=== PATIENT | male | born 1980 | race Two or more races ===

== ENCOUNTER 2024-06-12 05:15 | Emergency (ER) | payer OTHER, SELFPAY ==
[2024-06-12] VITALS (9 sets, daily range): BP systolic 117–152; BP diastolic 67–90; PULSE 102–113; RESP 16–20; TEMP 36.4–37.5; O2SAT 93–100; BMI 44.3
--- NOTE | 2024-06-12 05:37 | ED_ITS ---
HPI - SOB/Dyspnea General Chief Complaint: Upper Respiratory Symptoms Stated Complaint: SOB hx of Asthma Time Seen by Provider: 06/12/24 05:37 Source: patient Mode of arrival: EMS Limitations: no limitations History of Present Illness ED Provider: HPI Narrative: Patient with history of schizoaffective disorder does discharge from [facility] for RSV bronchitis patient been having symptoms for last 3 days was seen at [facility] discharge comes here as still feeling short of breath does not feel safe getting agitated in between coughing frequently Related Data Allergies Allergy/AdvReac Type Severity Reaction Status Date / Time No Known Allergies Allergy Verified 06/12/24 05:28 Review of Systems 2 Review of Systems: Yes all other systems are reviewed and are negative [facility] Past Medical History Medical History Schizoaffective disorder Social History Social History Advance Directives: No Advance Directives Information Provided: Yes Physical Exam 2 Vital Signs: Vital Signs: Last Vital Signs Temp 97.6 F 06/12/24 05:26 Pulse 103 H 06/12/24 06:30 Resp 18 06/12/24 06:30 BP 117/76 06/12/24 06:30 Pulse Ox 94 06/12/24 06:30 O2 Del Method Room Air 06/12/24 06:30 BMI result Body Mass Index 44.3 Appearance: Alert. Oriented X3. No acute distress. Coughing and wheezing Eyes: PERRLA, No Nystagmus ENT: Pharynx normal. Oral Mucosa moist Neck: Normal inspection. Neck supple. CVS: Normal heart rate and rhythm. Pulses normal. Respiratory: No respiratory distress. Equal air entry bilateral, bilateral wheezing with frequent cough Abdomen: Soft and nontender. Bowel sounds are present, no mass palpable, no CVA tenderness Skin: Skin warm and dry. Normal skin color. Normal skin turgor. Extremities: No lower extremity edema. No calf tenderness psych: Labile mood frequently coughing Neuro: Oriented X 3. No motor deficit. No sensory deficit.No cerebellar signs , cranial nerves II-XII intact Medications Administered Discontinued Medications Generic Name Dose Route Start Last Admin Trade Name Freq PRN Reason Stop Dose Admin Diphenhydramine HCl 50 mg 06/12/24 06:16 06/12/24 06:15 Diphenhydramine Hcl 50 Mg/Ml Vial IM 06/12/24 06:17 50 mg ONCE ONE Administration Haloperidol Lactate 5 mg 06/12/24 06:16 06/12/24 06:15 Haloperidol Lactate 5 Mg/Ml Vial IM 06/12/24 06:17 5 mg STAT STA Administration Lorazepam 2 mg 06/12/24 06:16 06/12/24 06:15 Lorazepam 2 Mg/Ml Vial IM 06/12/24 06:17 2 mg STAT STA Administration Medical Decision Making Medical Decision Making MDM Narrative: Patient has become very agitated during stay in the ER started hitting himself felt suicidal has a restrained him and medicated will get care team with no for evaluation Lab Data [facility] Lab Attestation statement: I reviewed the patient's lab results. 06/12/24 06:48 06/12/24 06:48 Labs: Lab Results 06/12/24 Range/Units 06:48 WBC 7.1 (4.8-10.8) X10*3/uL RBC 4.01 L (4.60-5.80) X10*6/uL Hgb 10.8 L (14.0-18.0) g/dl Hct 32.6 L (42.0-52.0) % MCV 81.3 (80.0-98.0) fL MCH 26.9 L (27.0-33.0) pg MCHC 33.1 (31.0-36.0) g/dl RDW 14.1 (11.0-16.0) % Plt Count 212 (160-400) X10*3/uL MPV 9.7 (9.4-12.4) fL Immature Gran % (Auto) 0.7 H (0.0-0.4) % Neut % (Auto) 47.6 (45-73) % Lymph % (Auto) 29.7 (20-40) % [place] % (Auto) 16.0 H (2-11) % Eos % (Auto) 5.4 H (0-4) % Baso % (Auto) 0.6 (0-2) % Lymph # (Auto) 2.1 (1.2-4.9) X10*3/uL [place] # (Auto) 1.1 (0.1-1.2) X10*3/uL Eos # (Auto) 0.4 (0.0-0.4) X10*3/uL Baso # (Auto) 0.0 (0.0-0.2) X10*3/uL Abs Immat Gran (auto) 0.05 H (0.00-0.03) X10*3/uL Absolute Neuts (auto) 3.4 (2.0-8.3) x10*3/uL Absolute Nucleated RBC 0.000 (0.0-0.012) X10*3/uL Nucleated RBC % (auto) 0.0 (0.0-0.2) /100WBC Discharge Plan Discharge Clinical Impression: Acute bronchiolitis due to respiratory syncytial virus, Schizoaffective disorder, Depression with suicidal ideation Patient Disposition: Still a Patient Print Language: Hungarian
--- NOTE | 2024-06-12 06:14 | PC.NURSE ---
registration and nuclear plant operator approached this RN at this time stating i am going to kill myself . this rn at bedside with nuclear plant operator. when asking why pt is hitting self and hitting his head against the bed he states i am going to kill myself i have no where to go my mom does not want me im living in a room pt explained the car changer process. provider at bedside. pt charged at provider at desk, hitting self and then threw self on the floor.
[2024-06-12] MEDS: diphenhydrAMINE HCL 50 MG/ML VIAL IM (06:15)
[2024-06-12] MEDS: LORazepam 2 MG/ML VIAL IM (06:15)
[2024-06-12] MEDS: Haloperidol Lactate 5 MG/ML VIAL IM (06:15)
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
--- OUTSIDE RECORDS SUMMARY | 2024-06-12 06:31 | XMS_ITS | Clinical Summary ---
Author Organization Unknown Care Team Providers Care Product Analyst Name Role Phone MELVIN HUMID SYSTEM OPERATOR, SOFI Unavailable Unavailable WISAM AUGUSTINE, ZEINAB Unavailable Unavailable Payers Payer Name Policy Type Policy Number Effective Date Expira tion Date [facility] [id number] MEDICAID [facility] [id number] MEDICARE - [facility] - [facility] [id number] Problems Condition Name Condition Details Condition Category Status Onset Date Resolution Date Last Treatment Date Treating Clinician Comments SCHIZOPHRENI A, UNSPECIFIED Active 08-29 00:00: 00 TYPE 2 DIABETES MELLITUS WITHOUT COMPLICATION S Active 09-09 00:00: 00 Allergies, Adverse Reactions, Alerts Allergy Name Allergy Type Status Severity Reaction(s) Onset Date Inactive Date Treating Clinician Comments NKA Propensity to adverse reactions Active 2023-08 10:24:4 8 Medications Ordered Medication Name Filled Medication Name Start Date Stop Date Current Medication? Ordering Clinician Indication Dosage Frequency Signature (SIG) Comments Components atorvastati n 40 mg tablet 09-02 00:00: 00 Yes [id number] 1 tablet BEDTIME 1 tablet BEDTIME (route: oral) Med Classific ation: Cardiovas cular Therapy Agents clozapine 100 mg tablet 09-02 00:00: 00 Yes [id number] 3 tablet BEDTIME 3 tablet BEDTIME (route: oral) Med Classific ation: Central Nervous System Agents divalproex 500 mg tablet,adriana yed release 09-02 00:00: 00 Yes [id number] 3 tablet BEDTIME 3 tablet BEDTIME (route: oral) Med Classific ation: Central Nervous System Agents escitalopra m 20 mg tablet 09-02 00:00: 00 Yes [id number] 1 tablet DAILY 1 tablet DAILY (route: oral) Med Classific ation: Central Nervous System Agents famotidine 20 mg tablet 09-02 00:00: 00 Yes [id number] 1 tablet DAILY 1 tablet DAILY (route: oral) Med Classific ation: Gastroint estinal Therapy Agents hydroxyzine pamoate 50 mg capsule 09-02 00:00: 00 Yes [id number] 1 capsule NEEDED 1 capsule NEEDED (route: oral) Med Classific ation: Central Nervous System Agents lisinopril 5 mg tablet 09-02 00:00: 00 Yes [id number] 0.5 tablet DAILY 0.5 tablet DAILY (route: oral) Med Classific ation: Cardiovas cular Therapy Agents loratadine 10 mg tablet 09-02 00:00: 00 Yes [id number] 1 tablet DAILY 1 tablet DAILY (route: oral) Med Classific ation: Respirato ry Therapy Agents melatonin 3 mg tablet 09-02 00:00: 00 04-25 23:59 :00 No [id number] 3 tablet BEDTIME 3 tablet BEDTIME (route: oral) Med Classific ation: Central Nervous System Agents metformin 500 mg tablet 09-02 00:00: 00 Yes [id number] 1 tablet DAILY 1 tablet DAILY (route: oral) Med Classific ation: Endocrine metoprolol succinate ER 25 mg tablet,exte nded release 24 hr 09-02 00:00: 00 Yes [id number] 3 tablet DAILY 3 tablet DAILY (route: oral) Med Classific ation: Cardiovas cular Therapy Agents trazodone 50 mg tablet 09-02 00:00: 00 Yes [id number] 1 tablet BEDTIME 1 tablet BEDTIME (route: oral) Med Classific ation: Central Nervous System Agents melatonin 5 mg tablet 2023-06 00:00: 00 Yes [id number] 1 tablet BEDTIME 1 tablet BEDTIME (route: oral) Med Classific ation: Central Nervous System Agents Vital Signs Vital Name Observation Time Observation Value Commen ts Temperature 2024-06-07 08:43:00.000 97.9 [degF] Temperature 2024-06-04 08:44:00.000 97.6 [degF] Temperature 2024-05-31 08:44:00.000 97.9 [degF] Temperature 2024-05-28 08:41:00.000 97.9 [degF] Temperature 2024-05-25 08:52:00.000 97.9 [degF] Temperature 2024-05-24 08:46:00.000 97.9 [degF] Temperature 2024-05-22 08:51:00.000 97.6 [degF] Temperature 2024-05-21 08:43:00.000 97.9 [degF] Temperature 2024-05-17 08:53:00.000 97.9 [degF] Temperature 2024-05-16 08:46:00.000 97.9 [degF] Temperature 2024-05-14 08:43:00.000 97.6 [degF] Temperature 2024-05-07 08:33:00.000 97.6 [degF] Temperature 2024-05-02 08:48:00.000 98.2 [degF] Temperature 2024-04-30 08:35:00.000 97.8 [degF] Pulse 2024-06-07 08:43:00.000 79 /min Pulse 2024-06-04 08:44:00.000 75 /min Pulse 2024-05-31 08:44:00.000 82 /min Pulse 2024-05-28 08:41:00.000 78 /min Pulse 2024-05-25 08:52:00.000 76 /min Pulse 2024-05-24 08:46:00.000 75 /min Pulse 2024-05-22 08:51:00.000 82 /min Pulse 2024-05-21 08:43:00.000 77 /min Pulse 2024-05-17 08:53:00.000 76 /min Pulse 2024-05-16 08:46:00.000 77 /min Pulse 2024-05-14 08:43:00.000 76 /min Pulse 2024-05-07 08:33:00.000 76 /min Pulse 2024-05-02 08:48:00.000 76 /min Pulse 2024-04-30 08:35:00.000 78 /min O2 Saturation (%) 2024-06-07 08:43:00.000 97 % O2 Saturation (%) 2024-06-04 08:45:00.000 98 % O2 Saturation (%) 2024-05-31 08:50:00.000 98 % O2 Saturation (%) 2024-05-28 08:43:00.000 98 % O2 Saturation (%) 2024-05-25 08:52:00.000 98 % O2 Saturation (%) 2024-05-24 08:47:00.000 97 % O2 Saturation (%) 2024-05-21 08:44:00.000 97 % O2 Saturation (%) 2024-05-17 08:53:00.000 98 % O2 Saturation (%) 2024-05-07 08:45:00.000 98 % O2 Saturation (%) 2024-05-02 08:49:00.000 97 % O2 Saturation (%) 2024-04-30 08:35:00.000 98 % Respirations 2024-06-07 08:43:00.000 18 /min Respirations 2024-06-04 08:44:00.000 18 /min Respirations 2024-05-31 08:44:00.000 18 /min Respirations 2024-05-28 08:41:00.000 20 /min Respirations 2024-05-25 08:52:00.000 20 /min Respirations 2024-05-24 08:46:00.000 20 /min Respirations 2024-05-22 08:51:00.000 20 /min Respirations 2024-05-21 08:43:00.000 20 /min Respirations 2024-05-17 08:53:00.000 18 /min Respirations 2024-05-16 08:46:00.000 20 /min Respirations 2024-05-14 08:43:00.000 20 /min Respirations 2024-05-07 08:33:00.000 20 /min Respirations 2024-05-02 08:48:00.000 18 /min Respirations 2024-04-30 08:35:00.000 20 /min Systolic Blood Pressure 2024-06-07 08:43:00.000 128 mm [Hg] Systolic Blood Pressure 2024-06-04 08:44:00.000 134 mm [Hg] Systolic Blood Pressure 2024-05-31 08:44:00.000 136 mm [Hg] Systolic Blood Pressure 2024-05-28 08:41:00.000 135 mm [Hg] Systolic Blood Pressure 2024-05-25 08:52:00.000 134 mm [Hg] Systolic Blood Pressure 2024-05-24 08:46:00.000 126 mm [Hg] Systolic Blood Pressure 2024-05-22 08:51:00.000 128 mm [Hg] Systolic Blood Pressure 2024-05-21 08:43:00.000 128 mm [Hg] Systolic Blood Pressure 2024-05-17 08:53:00.000 128 mm [Hg] Systolic Blood Pressure 2024-05-16 08:46:00.000 128 mm [Hg] Systolic Blood Pressure 2024-05-14 08:43:00.000 128 mm [Hg] Systolic Blood Pressure 2024-05-07 08:33:00.000 141 mm [Hg] Systolic Blood Pressure 2024-05-02 08:48:00.000 134 mm [Hg] Systolic Blood Pressure 2024-04-30 08:35:00.000 134 mm [Hg] Diastolic Blood Pressure 2024-06-07 08:43:00.000 77 mm [Hg] Diastolic Blood Pressure 2024-06-04 08:44:00.000 84 mm [Hg] Diastolic Blood Pressure 2024-05-31 08:44:00.000 86 mm [Hg] Diastolic Blood Pressure 2024-05-28 08:41:00.000 84 mm [Hg] Diastolic Blood Pressure 2024-05-25 08:52:00.000 78 mm [Hg] Diastolic Blood Pressure 2024-05-24 08:46:00.000 69 mm [Hg] Diastolic Blood Pressure 2024-05-22 08:51:00.000 79 mm [Hg] Diastolic Blood Pressure 2024-05-21 08:43:00.000 74 mm [Hg] Diastolic Blood Pressure 2024-05-17 08:53:00.000 77 mm [Hg] Diastolic Blood Pressure 2024-05-16 08:46:00.000 76 mm [Hg] Diastolic Blood Pressure 2024-05-14 08:43:00.000 76 mm [Hg] Diastolic Blood Pressure 2024-05-07 08:33:00.000 84 mm [Hg] Diastolic Blood Pressure 2024-05-02 08:48:00.000 78 mm [Hg] Diastolic Blood Pressure 2024-04-30 08:35:00.000 81 mm [Hg] Plan of Treatment Planned Activity Planned Date Details Comments Future Scheduled Test SKILLED NU RSE TO EVALUATE PATIENT, IDENTIFY PRIMARY AND CO-MORBID CONDITIONS CODED PER CODING GUIDELINES, AND DEVELOP PATIENT SPECIFIC PLAN OF CARE THAT INCLUDES PATIENT GOAL FOR HOME HEALTH. [code = SKILLED NURSE TO EVALUATE PATIENT, IDENTIFY PRIMARY AND CO-MORBID CONDITIONS CODED PER CODING GUIDELINES, AND DEVELOP PATIENT SPECIFIC PLAN OF CARE THAT INCLUDES PATIENT GOAL FOR HOME HEALTH.] Future Scheduled Test SKILLED NU RSE TO O/A OF PATIENTS MENTAL/BEHAVIORAL STATUS, ASSESS VITAL SIGNS ALLOW 2 PRNS FOR MEDICATION MANAGEMENT. [code = SKILLED NURSE TO O/A OF PATIENTS MENTAL/BEHAVIORAL STATUS, ASSESS VITAL SIGNS ALLOW 2 PRNS FOR MEDICATION MANAGEMENT.] Future Scheduled Test SKILLED NU RSE FOR O/A OF PATIENT'S RISK FOR VIOLENCE (TOWARD SELF OR OTHERS) AND TO PROVIDE INTERVENTION TECHNIQUES TO PROMOTE SAFETY TO PATIENT AND OTHERS [code = SKILLED NURSE FOR O/A OF PATIENT'S RISK FOR VIOLENCE (TOWARD SELF OR OTHERS) AND TO PROVIDE INTERVENTION TECHNIQUES TO PROMOTE SAFETY TO PATIENT AND OTHERS] Future Scheduled Test SKILLED NU RSE FOR O/A OF ALTERED THOUGHT PROCESS AND/OR DISRUPTION IN COGNITIVE OPERATIONS AND ACTIVITIES [code = SKILLED NURSE FOR O/A OF ALTERED THOUGHT PROCESS AND/OR DISRUPTION IN COGNITIVE OPERATIONS AND ACTIVITIES ] Future Scheduled Test SKILLED NU RSE FOR O/A OF GENERAL HEALTH STATUS OF PAIN, CARDIAC, RESPIRATORY, GASTROINTESTINAL, GENITOURINARY, SKIN, NEUROLOGIC, ENDOCRINE SYSTEMS TO IDENTIFY CHANGES ASSOCIATED WITH EXACERBATION FOR EARLY INTERVENTION OF COMPLICATIONS WEEKLY. [code = SKILLED NURSE FOR O/A OF GENERAL HEALTH STATUS OF PAIN, CARDIAC, RESPIRATORY, GASTROINTESTINAL, GENITOURINARY, SKIN, NEUROLOGIC, ENDOCRINE SYSTEMS TO IDENTIFY CHANGES ASSOCIATED WITH EXACERBATION FOR EARLY INTERVENTION OF COMPLICATIONS WEEKLY.] Future Scheduled Test SKILLED NU RSE FOR O/A AND SKILLED TEACHING RELATED TO MANAGEMENT OF DEPRESSIVE SYMPTOMS AND/OR DEPRESSION. SN TO REPORT SIGNIFICANT CHANGE IN DEPRESSIVE SYMPTOMS TO CLINICAL PROVIDER FOR EARLY INTERVENTION. [code = SKILLED NURSE FOR O/A AND SKILLED TEACHING RELATED TO MANAGEMENT OF DEPRESSIVE SYMPTOMS AND/OR DEPRESSION. SN TO REPORT SIGNIFICANT CHANGE IN DEPRESSIVE SYMPTOMS TO CLINICAL PROVIDER FOR EARLY INTERVENTION.] Future Scheduled Test SKILLED NU RSE FOR O/A AND TEACHING OF DIABETIC MANAGEMENT INCLUDING BLOOD SUGAR MONITORING/USE OF GLUCOMETER, DIABETIC DIET, LOWER EXTREMITY SKIN INSPECTION, PROPER SKIN/FOOT CARE, AND SIGNS AND SYMPTOMS HYPO/HYPERGLYCEMIA TO REPORT. [code = SKILLED NURSE FOR O/A AND TEACHING OF DIABETIC MANAGEMENT INCLUDING BLOOD SUGAR MONITORING/USE OF GLUCOMETER, DIABETIC DIET, LOWER EXTREMITY SKIN INSPECTION, PROPER SKIN/FOOT CARE, AND SIGNS AND SYMPTOMS HYPO/HYPERGLYCEMIA TO REPORT.] Future Scheduled Test SKILLED NU RSE TO PERFORM AND RECORD BLOOD SUGAR READING EACH VISIT, AND PRN FOR SIGNS AND SYMPTOMS OF HYPO/HYPERGLYCEMIA. [code = SKILLED NURSE TO PERFORM AND RECORD BLOOD SUGAR READING EACH VISIT, AND PRN FOR SIGNS AND SYMPTOMS OF HYPO/HYPERGLYCEMIA.] Future Scheduled Test SKILLED NU RSE FOR O/A, TEACHING, AND MANAGEMENT [code = SKILLED NURSE FOR O/A, TEACHING, AND MANAGEMENT ] Future Scheduled Test SKILLED NU RSE TO REVIEW PATIENT MEDICATIONS. INSTRUCT PATIENT/CAREGIVER ON MONITORING OF EFFECTIVENESS, ADVERSE DRUG REACTIONS, SIDE EFFECTS OF ALL MEDICATIONS (PRESCRIPTION/-OTC), AND HOW AND WHEN TO REPORT PROBLEMS. [code = SKILLED NURSE TO REVIEW PATIENT MEDICATIONS. INSTRUCT PATIENT/CAREGIVER ON MONITORING OF EFFECTIVENESS, ADVERSE DRUG REACTIONS, SIDE EFFECTS OF ALL MEDICATIONS (PRESCRIPTION/-OTC), AND HOW AND WHEN TO REPORT PROBLEMS.] Future Scheduled Test SKILLED NU RSE FOR O/A OF CLIENT'S CURRENT DEGREE OF HOPELESSNESS AND PROVIDE THERAPEUTIC INTERVENTIONS AND TEACHING DESIGNED TO ENHANCE THE CLIENT'S WELL BEING. [code = SKILLED NURSE FOR O/A OF CLIENT'S CURRENT DEGREE OF HOPELESSNESS AND PROVIDE THERAPEUTIC INTERVENTIONS AND TEACHING DESIGNED TO ENHANCE THE CLIENT'S WELL BEING.] Future Scheduled Test SKILLED NU RSE TO ASSESS PATIENTS PSYCHOSOCIAL STATUS TO IDENTIFY POTENTIAL ISSUES THAT MAY COMPLICATE THE PROVISION OF THE PLAN OF CARE INCLUDING THE PATIENTS ABILITY TO ACCESS COMMUNITY RESOURCES AND PSYCHOSOCIAL SUPPORT SERVICES. [code = SKILLED NURSE TO ASSESS PATIENTS PSYCHOSOCIAL STATUS TO IDENTIFY POTENTIAL ISSUES THAT MAY COMPLICATE THE PROVISION OF THE PLAN OF CARE INCLUDING THE PATIENTS ABILITY TO ACCESS COMMUNITY RESOURCES AND PSYCHOSOCIAL SUPPORT SERVICES.] Future Scheduled Test SKILLED NU RSE WILL MAINTAIN SITUATIONAL AWARENESS FOR SAFETY AND WILL NOTIFY CLINICAL PATTERN ATTENDANT AND PHYSICIAN/PROVIDER WITH ANY CHANGE IN CONDITION. [code = SKILLED NURSE WILL MAINTAIN SITUATIONAL AWARENESS FOR SAFETY AND WILL NOTIFY CLINICAL PATTERN ATTENDANT AND PHYSICIAN/PROVIDER WITH ANY CHANGE IN CONDITION.] Goal 2023-12-28 Patient Goal - TAKE ALL MEDI CATIONS Goal 2023-10-28 Patient Goal - TAKE ALL MEDI CATIONS Goal 2024-02-27 Patient Goal - TAKE ALL MEDI CATIONS Goal 2024-04-25 Patient Goal - T [place] ALL MEDICATIONS DIRECTED PT WILL HAVE NO HOSPITALIZATION Goal Patient Goal - T [place] ALL MEDICATIONS DIRECTED PT WILL HAVE NO HOSPITALIZATION Goal Provider Goal - A PLAN OF CARE WILL BE ESTABLISHED THAT MEETS PATIENT'S LONGTERM NEEDS AND INCLUDES PATIENT GOAL FOR HOME HEALTH. Goal Provider Goal - ALTERED MENTAL/BEHAVIORAL STATUS WILL BE IDENTIFIED PROMPTLY AND INTERVENTION INITIATED QUICKLY TO MINIMIZE ASSOCIATED RISKS THROUGHOUT CERTIFICATION PERIOD. Goal Provider Goal - PATIENT WILL REMAIN SAFE IN COMMUNITY WITHOUT EVIDENCE OF INJURY/HARM TO SELF OR OTHERS THROUGHOUT CERTIFICATION PERIOD. Goal Provider Goal - PATIENT WILL BE ABLE TO PERFORM DAILY FUNCTIONS AND HAVE OPTIMAL IMPROVEMENT IN THOUGHT PROCESS THROUGHOUT CERTIFICATION PERIOD. Goal Provider Goal - CHANGE IN GENERAL HEALTH STATUS WILL BE IDENTIFIED AND REPORTED TO PHYSICIAN FOR PROMPT INTERVENTION TO MINIMIZE ASSOCIATED RISKS THROUGHOUT CERTIFICATION PERIOD. Goal Provider Goal - PATIENT WILL REMAIN SAFE WITHOUT DECOMPENSATION IN DEPRESSIVE CONDITION, WHILE MAINTAINING OPTIMAL LEVEL OF MENTAL HEALTH AND WELL BEING THROUGHOUT CERTIFICATION PERIOD. Goal Provider Goal - PATIENT/CAREGIVER WILL VERBALIZE/DEMONSTRATE KNOWLEDGE OF DIABETIC MANAGEMENT. CHANGES IN DIABETIC STATUS WILL BE IDENTIFIED AND REPORTED TO PHYSICIAN FOR PROMPT INTERVENTION THROUGHOUT THE CERTIFICATION PERIOD. Goal Provider Goal - BLOOD SUGAR READING WILL BE OBTAINED ORDERED THROUGHOUT CERTIFICATION PERIOD. Goal Provider Goal - PATIENT/CAREGIVER WILL VERBALIZE/DEMONSTRATE MANAGEMENT OF CARDIAC DISEASE PROCESS AND EXACERBATIONS WILL BE IDENTIFIED AND PROMPTLY REPORTED THROUGHOUT THE CERTIFICATION PERIOD. Goal Provider Goal - PATIENT/CAREGIVER WILL VERBALIZE UNDERSTANDING OF EDUCATION PROVIDED ON MEDICATIONS BY THE END OF THE CERTIFICATION PERIOD. Goal Provider Goal - PATIENT WILL VERBALIZE OWN ASSOCIATION OF FEELINGS OF HOPELESSNESS, AND 3 THERAPEUTIC TECHNIQUES TO DECREASE THESE FEELINGS BY THE END OF THIS CERTIFICATION. Goal Provider Goal - PSYCHOSOCIAL NEEDS WILL BE IDENTIFIED AND PLAN IMPLEMENTED TO MINIMIZE RISK THROUGHOUT CERTIFICATION PERIOD. Goal Provider Goal - PATIENT WILL REMAIN SAFE IN THE COMMUNITY AND WILL BE FREE OF DANGER TO SELF AND OTHERS THROUGHOUT THE CERTIFICATION PERIOD. Encounters Start Date/Time End Date/Time Encounter Type Admission Type Attending [facility] Care Facility Care Department Encounter ID Discharge Date Discharge Status Discharge Condition Discharge Reason Percent Goals Met 2023-09-03 00:00:00 2024-06-28 00:00:00 Outpatient RECERTIFIC ATZEINAB MARTINEZ [facility] [id number] [id number]
--- OUTSIDE RECORDS SUMMARY | 2024-06-12 06:31 | XMS_ITS | Continuity of Care Document ---
Author Organization [facility] Address [address] [place] [address] Phone Care Team Providers Care Supervisor [place]ro[place] Name Role Phone Unavailable Unavailable Unavailable Allergies, Adverse Reactions, Alerts Substance Reaction Status Criticality No Known Allergies Active No Inform ation Medications Medication Instructions Dosage Effective Dates (start - stop) Status Comments OMEPRAZOLE DR 20 MG CAPSULE TAKE 1 CAPSULE BY ORAL ROUTE EVERY DAY BEFORE A MEAL DAILY, INCREASE TO TWICE DAILY IF NEEDED - Active atropine 1 % eye drops - Active ESCITALOPRAM OXALATE (unknown strength) take 1 tablet by oral route every day Not Available - Active LEXAPRO (unknown strength) take 1 tablet by oral route every day Not Available - Active DOCUSATE SODIUM (unknown strength) take 1 capsule by oral route every day at bedtime as needed Not Available - Active Vitamin D3 400 unit tablet - Active atorvastatin 10 mg tablet take 1 tablet by oral route every day 10 MG - Active clozapine 200 mg disintegrating tablet take 3 tablet by oral route every day and place on top of the tongue where it will dissolve, then swallow 600 MG - Active Procedures Procedure Date Office/Outpatient Visit, Est Office/Outpatient Visit, Est Diagnostic Laryngoscopy Office/Outpatient Visit, New Advance Directives Directive Yes / No Effective Date File Name No Information Encounters Encounter Description Practice Location Reason(s) For Visit Diagnoses Date Provider Providers Copied on Encounter [facility], [address] [place] [address], [id number] , tel:[phone] Minal No Information 0 No Information [facility], [address] [place] [address], [id number] , tel:[phone] Caleb No Information Feb- 0 9 No Information Office/Outpa tient Visit, [facility], [address] [place] [address], [address] [place] [address] , tel: [phone] Maradiaga Follow Up of Cough (chief complaint) Other allergic rhinitisCoughLar yngopharyngeal reflux (LPR) 8 No Information Referring Provider: Monique Coates MD, [address] [place] [address], [id number]. tel:[phone] Office/Outpa tient Visit, [facility], [address] [place] [address], [address] [place] [address] , tel:[phone] Silvernail cough (chief complaint) CoughOther allergic rhinitis 8 Silvernail Regine. [address] [place] [address], [address] [place] [address], . tel:[phone] Referring Provider: Monique Coates MD, [address] [place] [address], [id number]. tel:[phone] Office/Outpa tient Visit, [facility], [address] [place] [address], [address] [place] [address] , tel:[phone] Madelyn Cough (chief complaint) Hoarseness (chief complaint) CoughOther allergic rhinitisSchizoph basilio, unspecified 8 MD Madelyn [place]. [facility], [address], [address], [place]. tel:[phone] Referring Provider: Monique Coates MD, [address] [place] [address], [id number]. tel:[phone] Family History Family Member Type Diagnosis Age At Onset No Information Payers Payer name Insurance type Covered republican ID Authoriza tion(s) MEDICARE PART B [id number] MEDICAID [facility] [id number] Social History Type Description Quantity Date Captured Comments Sex Male Smoking Status No Information Chief Complaint And Reason For Visit No Information Reason For Referral Reason For Referral No Information History Of Present Illness Encounter Date Complaint History Of Prese nt Illness Follow Up of Cough The patient d escribes the cough as dry and non-productive. It occurs occasionally. The problem has improved. Symptoms are aggravated by spicy food. Relieving factors include omeprazole. Associated symptoms include cough. Pertinent negatives include chills, dyspnea, dyspnea on exertion, epistaxis, fatigue, fever, heartburn, hemoptysis, hoarseness, nasal congestion, night sweats, pleuritic pain, post-nasal drainage, rhinitis, rhinorrhea, sinus pressure, sore throat, weight loss and wheezing. The patient does not have a history of asthma. Additional information: Overall the patient's dry cough has improved with avoidance of spicy foods and omeprazole 20 mg once daily. Most of the history today was provided by [facility] care provider. cough Pertinent negati ves include chills, cough, dyspnea, fever and sore throat. Additional information: was seen end of August for cough was doing better but now today alot worse, being seen again today, cannot tell why he is coughing, here with [facility] family care provider. cough has already trie d omeprazole 40 mg for a month. flonase seemed to help at first but now not as much. has been with his family care situation for 2 years, no allergy issues recalled from last year. has been on reflux medicine since June 2017 more of a throat clearing cough . Cough Onset: gradual. Severity: mild. The patient describes the cough as productive. It occurs persistently. The problem has become gradually worse. Context: allergies and GERD symptoms. There are no aggravating factors. There are no relieving factors. Associated symptoms include post-nasal drainage. Pertinent negatives include chills, cough, dyspnea, fever and sore throat. Hoarseness Onset was gradua l. The severity is mild-moderate. The duration of the symptoms is 3 Months. It occurs daily and is chronic. Context: reflux disease and seasonal allergies. Symptoms are aggravated by allergies, esophageal reflux and extensive voice use. Denies relieving factors. Associated symptoms include excessive throat clearing, mucus sticking in throat and post-nasal drainage. Pertinent negatives include cough, dyspnea, fever, hemoptysis, otalgia and sore throat. Functional Status Date Functional Assessmen t No Information Instructions Date Instruction Additional Infor jenise The patient was seen today for follow-up evaluation regarding and occasional dry cough he has had over the past 6 months, overall this is improved with treatment for underlying reflux. He did discontinue Flonase as he was on this for 3 months without improvement. We discussed continued treatment for reflux as outlined below. Related to Cough It is unclear if all ergies and postnasal drainage have contributed to the patient's cough previously. We did review that he could again attempt Flonase in conjunction with an oral antihistamine at bedtime if he experiences a recurrence in the future. Related to Other allergic rhinitis I suspect that the p rimary etiology of the patient's dry cough is laryngopharyngeal reflux as seen on his laryngoscopy and August. He has done well with modification of his diet to avoid triggers for reflux as well as use of omeprazole 20 mg once daily. I recommend that he continue with this and increase his dosing to b.i.d. during flares or if he indulges in a spicy meal as he has a propensity for these types of foods. He may follow up PRN. Related to Laryngopharyngeal reflux (LPR) Assessments Type Assessment Date No Information Patient Care Teams Name Effective Dates (start - stop) Status Members No Information
[2024-06-12 06:52] LABS: MANUAL DIFF FLAG NO
[2024-06-12 06:53] LABS: Basophils Percent Auto 0.6 % (0-2); Eosinophils Absolute Auto 0.4 X10*3/uL (0.0-0.4); Eosinophils Percent Auto 5.4 % (0-4); Hematocrit 32.6 % (42.0-52.0); Hemoglobin 10.8 g/dl (14.0-18.0); Imm Gran Abs Auto 0.05 X10*3/uL (0.00-0.03); Imm Gran Pct Auto 0.7 % (0.0-0.4); Lymphocytes Absolute Auto 2.1 X10*3/uL (1.2-4.9); Lymphocytes Percent Auto 29.7 % (20-40); Mean Corpuscular HGB Conc 33.1 g/dl (31.0-36.0); Mean Corpuscular Hemoglobin 26.9 pg (27.0-33.0); Mean Corpuscular Volume 81.3 fL (80.0-98.0); Mean Platelet Volume 9.7 fL (9.4-12.4); Monocytes Absolute Auto 1.1 X10*3/uL (0.1-1.2); Neutrophils Absolute Auto 3.4 x10*3/uL (2.0-8.3); Neutrophils Percent Auto 47.6 % (45-73); Platelet Count 212 X10*3/uL (160-400); Red Blood Count 4.01 X10*6/uL (4.60-5.80); Red Cell Distribution Width 14.1 % (11.0-16.0); White Blood Count 7.1 X10*3/uL (4.8-10.8)
--- NOTE | 2024-06-12 07:08 | PC.NURSE ---
handover report to Ashley./Debbie AUGUSTINE
[2024-06-12 07:13] LABS: Alanine Aminotransferase 71 U/L (0-40); Albumin Level 3.6 g/dL (3.5-5.0); Alkaline Phosphatase 83 U/L (39-117); Anion Gap 15 (12-20); Aspartate Amino Transferase 42 U/L (5-37); Bilirubin Total 0.2 mg/dL (0.0-1.0); Blood Urea Nitrogen 7 mg/dL (9-16); Calcium 8.3 mg/dL (8.4-10.2); Carbon Dioxide 22 mmol/L (22-29); Chloride 103 mmol/L (96-108); Creatinine Clr Calc Pharmacy 147.7; Estimated Glomerular Filt Rate > 60; Glucose Random 119 mg/dL (60-115); Sodium 136 mmol/L (135-145); Total Protein 6.2 g/dL (6.5-8.0)
--- NOTE | 2024-06-12 07:26 | PC.NURSE ---
Restraints removed at this time with security present; pt changed into proper attire and clothing secured with pt belongings Kristi port #3; sitter initiated at this time for pt safety; pt cooperative with care at this time; states via certified procedural coder my breathing is fine. I just want to end my life because I have nowhere to go
[2024-06-12 07:29] LABS: Influenza A PCR NEGATIVE (Negative); Influenza B PCR NEGATIVE (Negative); Resp Syncy Virus RNA Qual PCR POSITIVE (Negative); SARS COV2 PCR INHOUSE NEGATIVE (Negative)
--- NOTE | 2024-06-12 11:35 | MHC.CARE ---
T/W attempted to contact patients mother for collateral, left message. Chelsy - [phone]
[2024-06-12 11:36] LABS: Appearance Urine Clear; Color Urine Yellow; Glucose Urine UA Negative (Negative); Leukocyte Esterase Urine Trace (Negative); Nitrite Urine Negative (Negative); PH 6.5 (5.0-9.0); UMIC TRIGGER UACC YES; Urine Blood Negative (Negative); Urine Ketones Trace mg/dL (Negative); Urine Protein Negative (Neg-Trace)
[2024-06-12 11:41] LABS: Bacteria Urine None Seen (None Seen); Hyaline Casts Urine 0-2 /LPF (0-2); RBC Urine 0-2 /HPF (0-2); Squamous Epithelial Cell Urine 0-2 /HPF (0-2); WBC Urine 0-5 /HPF (0-5)
[2024-06-12 11:43] LABS: Ethanol < 10 mg/dL
[2024-06-12 11:48] LABS: Amphetamine Screen Urine Not Detected (Not Detect); Barbiturates, Urine Not Detected (Not Detect); Benzodiazepines Screen Urine Not Detected (Not Detect); Buprenorphine Scr Not Detected (Not Detect); Cannabinoid Screen Urine Not Detected (Not Detect); Cocaine Screen Urine Not Detected (Not Detect); Fentanyl, urine Not Detected (Not Detect); Methadone Screen, Urine Not Detected (Not Detect); Opiate Screen Urine Not Detected (Not Detect); Oxycodone Screen Urine Not Detected (Not Detect); Phencyclidine Screen Urine Not Detected (Not Detect)
--- NOTE | 2024-06-12 12:12 | PC.NURSE ---
this nurse took over pt care from roly at 1130 am, patient currently sleeping 1:1 sitter at bedside, per roly the patient is ambulatory with steady gait to bathroom, plan of care ongoing.
[2024-06-12] MEDS: guaiFENesin 200 MG/10 ML 10 ML LIQUID PO (13:19)
--- NOTE | 2024-06-12 13:19 | PC.NURSE ---
pt sleeping, woke to verbal stimulus, expiratory wheezing throughout, non productive cough- pt medicated for cough, rr equal/non labored, vitals previously stable, 1:1 sitter, call may within reach, plan of care ongoing
--- NOTE | 2024-06-12 20:00 | PC.NURSE ---
pt has a sitter present, pt states he is hearing voices +SI statements, pt denies pain but says he is dizzy.
--- NOTE | 2024-06-12 20:01 | PC.NURSE ---
pt is in green gown, sitter present. pt skin warm and dry no s/s of distress.
--- NOTE | 2024-06-12 22:26 | PHA.MEDREC ---
Addendum entered by Tracey Lopez [facility] 06/13/24 09:58: called Manjinder who was able to confirm that clozapine is 300mg at bedtime and metoprolol is 75mg daily. Original Note: Pharmacy Consult ? Medication Reconciliation Pharmacy has reviewed the medication reconciliation. Unable to verify directions of clozaril and metoprolol. Will follow up with manjinder in am
[2024-06-13] MEDS: Benzonatate 100 MG CAPSULE 200 MG PO ×2 (00:52→08:14)
--- NOTE | 2024-06-13 00:58 | PC.NURSE ---
tiger placed for clozapine 300mg not in ed pyxsis.
[2024-06-13] MEDS: cloZAPine 100 MG TABLET 300 MG PO (02:49)
--- NOTE | 2024-06-13 04:22 | PC.NURSE ---
pt wakes up and comes to the door calm and cooperative just wanting to know when he is moving out of his room. pt is easily redirectable and cooperative. sitter present. pt remains in green gown.
[2024-06-13 07:39] VITALS: BP 110/60; PULSE 81; RESP 18; TEMP 36.8; O2SAT 97
[2024-06-13 07:45] LABS: Neut%MD 45.2 %; Neutrophils Absolute Auto 3.3 x10*3/uL (2.0-8.3); WBCANC 7.3 X10*3/uL
[2024-06-13 08:04] LABS: Glucose, Whole Blood 205 mg/dL (60-115)
[2024-06-13 08:13] VITALS: BP 156/73; PULSE 111
[2024-06-13 08:14] VITALS: BP 156/73
[2024-06-13] MEDS: lisinopriL 2.5 MG TABLET PO (08:14)
[2024-06-13] MEDS: Escitalopram Oxalate 20 MG TABLET PO (08:14)
[2024-06-13] MEDS: metFORMIN HCl 500 MG TABLET PO (08:14)
[2024-06-13 15:55] VITALS: BP 156/73; PULSE 111; RESP 20; TEMP 36.8; O2SAT 97
== END 2024-06-13 16:03 | disposition still patient (30) ==
PROVIDERS: Emergency Medicine; Internal Medicine; Emergency Provider Emergency Medicine Emergency Medical Services
DX: J21.0 Acute bronchiolitis due to respiratory syncytial virus (principal); R06.02 Shortness of breath; F25.9 Schizoaffective disorder, unspecified; F33.1 Major depressive disorder, recurrent, moderate; R10.2 Pelvic and perineal pain; R45.851 Suicidal ideations; Z03.818 Encounter for observation for suspected exposure to other biological agents ruled out; Z51.81 Encounter for therapeutic drug level monitoring; Z79.899 Other long term (current) drug therapy
CPT/HCPCS: 0241U; 36415; 80053; 80307; 81001; 82947; 85025; 85048; 96372; 99285; J1200; J1630; J2060; S9485

== ENCOUNTER 2025-04-16 13:13 | Inpatient (IN) | payer OTHER, SELFPAY ==
[2025-04-16 15:03] VITALS: BP 142/93; PULSE 94; RESP 18; TEMP 36.4; O2SAT 95
[2025-04-16 15:04] VITALS: BMI 40.0
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
[2025-04-16 19:25] VITALS: BP 169/78; PULSE 95
[2025-04-16 19:37] LABS: Neut%MD 50.8 %; WBCANC 7.8 X10*3/uL
[2025-04-16 20:00] VITALS: BP 171/85; PULSE 108; RESP 16; TEMP 37; O2SAT 96
[2025-04-16] MEDS: Divalproex Sodium ER 250 MG TAB.ER.24H 750 MG PO (20:41)
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
[2025-04-17 08:00] VITALS: BP 177/81; PULSE 104; RESP 18; TEMP 36.6; O2SAT 95
[2025-04-17 08:34] LABS: Alanine Aminotransferase 49 U/L (0-40); Albumin Level 4.3 g/dL (3.5-5.0); Alkaline Phosphatase 96 U/L (39-117); Anion Gap 18 (12-20); Aspartate Amino Transferase 45 U/L (5-37); Blood Urea Nitrogen 14 mg/dL (9-16); Calcium 10.0 mg/dL (8.4-10.2); Carbon Dioxide 22 mmol/L (22-29); Chloride 102 mmol/L (96-108); Cholesterol 274 mg/dL (<200); Creatinine Clr Calc Pharmacy 142.0; Creatinine Clr Calc Pharmacy 145.9; Estimated Glomerular Filt Rate > 60; HDL Cholesterol 29 mg/dL (>40); Potassium 4.7 mmol/L (3.3-5.1); Sodium 137 mmol/L (135-145); Total Protein 7.3 g/dL (6.5-8.0); Triglycerides 777 mg/dL (<150)
[2025-04-17 08:44] LABS: Hemoglobin A1C 110.2996 umol/L
[2025-04-17 08:45] VITALS: PULSE 90
[2025-04-17] MEDS: Metoprolol Succinate ER 25 MG TAB.ER.24H 75 MG PO (08:45)
[2025-04-17 09:00] LABS: Thyroid Stimulating Hormone 3.77 uIU/mL (0.32-4.0)
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
[2025-04-17 19:30] VITALS: BP 131/64; PULSE 103; RESP 18; TEMP 36.4; O2SAT 97
[2025-04-17] MEDS: Divalproex Sodium ER 250 MG TAB.ER.24H 750 MG PO (20:37)
[2025-04-18] MEDS: Magnesium Hydrox/Alum Hydrox 30 ML ORAL.SUSP PO ×2 (01:27→21:28)
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
[2025-04-18] MEDS: Metoprolol Succinate ER 25 MG TAB.ER.24H 75 MG PO (09:53)
[2025-04-18 19:05] VITALS: BP 135/68; PULSE 109; RESP 16; TEMP 36.4; O2SAT 96
[2025-04-18] MEDS: Divalproex Sodium ER 250 MG TAB.ER.24H 750 MG PO (21:31)
[2025-04-19 08:00] VITALS: BP 145/65; PULSE 93; RESP 16; TEMP 36.7; O2SAT 96
[2025-04-19] MEDS: Metoprolol Succinate ER 25 MG TAB.ER.24H 75 MG PO (08:21)
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
[2025-04-19] MEDS: Magnesium Hydrox/Alum Hydrox 30 ML ORAL.SUSP PO (19:11)
[2025-04-19 20:00] VITALS: BP 154/83; PULSE 95; RESP 16; TEMP 36.4; O2SAT 98
[2025-04-19] MEDS: Divalproex Sodium ER 250 MG TAB.ER.24H 750 MG PO (20:31)
[2025-04-20 08:24] VITALS: BP 154/71; PULSE 85; RESP 20; TEMP 36.2; O2SAT 98
[2025-04-20] MEDS: Metoprolol Succinate ER 25 MG TAB.ER.24H 75 MG PO (08:54)
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
[2025-04-20 20:00] VITALS: BP 146/67; PULSE 87; RESP 16; TEMP 36.4; O2SAT 96
[2025-04-20] MEDS: Divalproex Sodium ER 250 MG TAB.ER.24H 750 MG PO (20:20)
[2025-04-21 08:28] VITALS: BP 135/64; PULSE 91; RESP 18; TEMP 36.3; O2SAT 95
[2025-04-21] MEDS: Metoprolol Succinate ER 25 MG TAB.ER.24H 75 MG PO (08:56)
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
[2025-04-21 20:10] VITALS: BP 159/74; PULSE 92; RESP 18; TEMP 36.3; O2SAT 96
[2025-04-21] MEDS: Magnesium Hydrox/Alum Hydrox 30 ML ORAL.SUSP PO (20:36)
[2025-04-21] MEDS: Divalproex Sodium ER 250 MG TAB.ER.24H 750 MG PO (20:42)
[2025-04-22 07:41] VITALS: BP 134/74; PULSE 88; RESP 16; TEMP 36.3; O2SAT 98
[2025-04-22] MEDS: Metoprolol Succinate ER 25 MG TAB.ER.24H 75 MG PO (08:29)
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
[2025-04-22] MEDS: Magnesium Hydrox/Alum Hydrox 30 ML ORAL.SUSP PO (13:42)
[2025-04-22 19:15] VITALS: BP 154/72; PULSE 95; RESP 18; TEMP 36.4; O2SAT 98
[2025-04-22] MEDS: Divalproex Sodium ER 250 MG TAB.ER.24H 750 MG PO (21:36)
[2025-04-23 08:00] VITALS: BP 138/65; PULSE 96; RESP 18; TEMP 36.3; O2SAT 96
[2025-04-23 08:41] VITALS: BP 138/65
[2025-04-23 08:42] VITALS: BP 138/65; PULSE 96
[2025-04-23] MEDS: Metoprolol Succinate ER 25 MG TAB.ER.24H 75 MG PO (08:42)
[2025-04-23 10:35] LABS: Neut%MD 43.9 %; WBCANC 7.5 X10*3/uL
[2025-04-23 11:10] LABS: Creatinine Clr Calc Pharmacy 120.8; Estimated Glomerular Filt Rate > 60
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
== END 2025-04-23 11:59 | disposition home or self-care (01) | DRG 885 ==
PROVIDERS: Admitting Provider Psychiatry & Neurology Psychiatry; Visit Provider Psychiatry & Neurology Psychiatry
DX: F25.9 Schizoaffective disorder, unspecified (principal); Z68.41 Body mass index [BMI] 40.0-44.9, adult; I10 Essential (primary) hypertension; E11.9 Type 2 diabetes mellitus without complications; Z71.3 Dietary counseling and surveillance; E78.1 Pure hyperglyceridemia; E66.01 Morbid (severe) obesity due to excess calories; Z79.84 Long term (current) use of oral hypoglycemic drugs; V89.2XXS Person injured in unspecified motor-vehicle accident, traffic, sequela; Z87.820 Personal history of traumatic brain injury; Z79.899 Other long term (current) drug therapy
CPT/HCPCS: 36415; 80053; 80061; 80164; 82565; 83036; 84443; 85048

== ENCOUNTER → 2025-04-16 13:13 | Outpatient (BNV) | payer OTHER, SELFPAY | PROVIDERS: Admitting Provider Psychiatry & Neurology Psychiatry; Visit Provider Physician Assistant | DX: Z00.8 Encounter for other general examination (principal) | CPT/HCPCS: 99222 ==

== ENCOUNTER → 2025-04-16 13:13 | Outpatient (BNV) | payer OTHER, SELFPAY | PROVIDERS: Admitting Provider Psychiatry & Neurology Psychiatry; Visit Provider Psychiatry & Neurology Psychiatry | DX: F25.9 Schizoaffective disorder, unspecified (principal); Z87.820 Personal history of traumatic brain injury | CPT/HCPCS: 90792; 99232 ==